=== PATIENT | male | born 1960 | race American Indian/Alaskan Native ===

== ENCOUNTER 2019-02-13 09:49 | Emergency (ER) | payer SELFPAY ==
[2019-02-13 10:20] VITALS: BP 176/94
--- NOTE | 2019-02-13 10:59 | XRay Report ---
RIGHT HAND, 3 VIEWS INDICATION: mid finger injury. COMPARISON: None. IMPRESSION: Soft tissue and bony amputation of the distal third digit is demonstrated at the level o f the mid distal phalanx. A soft tissue bandage has been applied which degrades detail. The remainin g bony structures in the right hand are intact. No significant DJD. Signer Name: Nilo Toro Jr, MD Signed: 02/13/2019 10:55 AM Workstation Name: [id number]
[2019-02-13] MEDS ORDERED: BOOSTRIX IM ONE (11:58)
--- NOTE | 2019-02-13 11:58 | Emergency Department Report ---
ED Laceration HPI - HPI Chief Complaint: Wound/Laceration Stated Complaint: CUT FINGER Time Seen by Provider: 02/13/19 11:21 Occurred When: Today Location: Upper Extremity (right 3rd distal finger) Severity: severe Tetanus Status: Not up to Date Laceration Symptoms: Yes Pain, No Foreign Body Sensation, No Numbness, No Weakness Other History: This is a 58-year-old male who presents to the emergency room with complete avulsion of right distal third finger. Patient states he was working with a chain saw at home fixing a door around 0900 when he accidentally cut his finger. He does not recall the last tetanus vaccine. Patient states he was unable to find the tip of his finger. He applied pressure and came in for evaluation. ED Review of Systems ROS: Stated complaint: CUT FINGER Other details as noted in HPI Constitutional: denies: chills, fever Respiratory: denies: cough, shortness of breath, wheezing Cardiovascular: denies: chest pain, palpitations Gastrointestinal: denies: abdominal pain, nausea, diarrhea Skin: lesions (Avulsion of right distal 3rd finger). denies: rash Neurological: denies: headache, weakness, paresthesias Psychiatric: denies: anxiety, depression ED Past Medical Hx - Past Medical History Previous Medical History?: No - Surgical History Past Surgical History?: No - Social History Smoking Status: Current Every Day Smoker Substance Use Type: Alcohol Laceration Physical Exam - Exam General: Vital signs noted. No distress. Alert and acting appropriately. Full Body Front + Back: 1 - Avulsion of right 3rd finger, from mid phalanx, bloody discharge, partial nail intact Laceration Exam: Yes Normal Distal CMS, No Foreign Body, No Exposed Tendon, Vessel, or Nerve, No Tendon Injury ED Course Vital Signs 02/13/19 10:14 Temperature 98.1 F Pulse Rate 72 Respiratory 20 Rate Blood Pressure 176/94 O2 Sat by Pulse 96 Oximetry - Reevaluation(s) Reevaluation #1: 02/13/19 12:56 Consulted with orthopedist surgeon Dr. Reyes who instructed to have patient finger dressed with gauze dressing and send to his office for follow up. ED Medical Decision Making - Radiology Data Radiology results: report reviewed RIGHT HAND, 3 VIEWS INDICATION: mid finger injury. COMPARISON: None. IMPRESSION: Soft tissue and bony amputation of the distal third digit is demonstrated at the level of the mid distal phalanx. A soft tissue bandage has been applied which degrades detail. The remaining bony structures in the right hand are intact. No significant DJD. - Medical Decision Making Patient was examined by me. Patient is nontoxic appearing and stable. Vitals are normal. Obtained x-ray of right fingers. Soft tissue and bony amputation of the distal third digit is demonstrated at the level of the mid distal phalanx. A soft tissue bandage has been applied which degrades detail. The remaining bony structures in the right hand are intact. No significant DJD. Given tetanus vaccine while in the ER. Consulted orthopedic surgeon Dr. Reyes. A sterile dressing applied to 3rd finger. Patient instructed to go to Dr. Reyes office for continue care after discharge. Patient discharged home in stable condition. Critical care attestation.: If time is entered above; I have spent that time in minutes in the direct care of this critically ill patient, excluding procedure time. ED Disposition Clinical Impression: Avulsion of finger tip Qualifiers: Encounter type: initial encounter Qualified Code(s): S61.209A - Unspecified open wound of unspecified finger without damage to nail, initial encounter Disposition: DC-01 TO HOME OR SELFCARE Is pt being admited?: No Does the pt Need Aspirin: No Condition: Stable Instructions: Finger Amputation (ED) Additional Instructions: Follow-up with the orthopedic surgeon from the referral list below Dr. Reyes after discharge. Referrals: RISA REYES MD [Staff Physician] - 3-5 Days [facility] [Provider Group] - 3-5 Days Forms: Accompanied Note, Work/School Release Form(ED) Time of Disposition: 13:04
== END 2019-02-13 13:15 | disposition home or self-care (01) ==
LOC: ED 09:49
DX: S61.202A Unspecified open wound of right middle finger without damage to nail, initial encounter (principal); F17.200 Nicotine dependence, unspecified, uncomplicated; W26.8XXA Contact with other sharp object(s), not elsewhere classified, initial encounter; Y93.89 Activity, other specified; Y92.69 Other specified industrial and construction area as the place of occurrence of the external cause; Y99.8 Other external cause status
CPT/HCPCS: 90471; 90715